=== PATIENT | male | born 2000 | race African-American/Black ===

== ENCOUNTER 2025-01-17 18:52 | Emergency (ER) | payer MEDICAID ==
[~2025-01-17] VITALS: Ht 193 cm; Wt 72.6 kg
[2025-01-17 19:01] VITALS: O2SAT 100
[2025-01-17 19:03] VITALS: BP 133/54; PULSE 73; RESP 18; TEMP 36.8; O2SAT 100
[2025-01-17] MEDS ORDERED: ERYT1OIN6 EACHEYE (20:41)
[2025-01-17] MEDS: FLUORESCEIN SODIUM 1MG/STRIP BOTHEYE ONE (20:41)
[2025-01-17] MEDS: TETRACAINE 0.5% OPHTH DROPS 4ML BOTHEYE ONE (20:41)
[2025-01-17] MEDS: ACETAMINOPHEN 325MG TABLET PO ONE (21:09)
[2025-01-17] MEDS: KETOROLAC 15MG/ML VIAL IM ONE (21:16)
== END 2025-01-17 21:17 | disposition home or self-care (01) ==
LOC: ER 18:52
DX: S05.02XA Injury of conjunctiva and corneal abrasion without foreign body, left eye, initial encounter (principal); J45.909 Unspecified asthma, uncomplicated; X58.XXXA Exposure to other specified factors, initial encounter; Y93.89 Activity, other specified; Y92.89 Other specified places as the place of occurrence of the external cause; Y99.8 Other external cause status
CPT/HCPCS: 99283; J1885